=== PATIENT | female | born 1965 | race Caucasian/White ===

== ENCOUNTER → 2020-12-02 | Outpatient (CLI) | payer OTHER ==
[2020-12-02 12:50] LABS: ABSOLUTE NEUTROPHILS 7.3 thou/uL (1.4-8.2); BASOPHILS 0.3 % (0.0-2.0); EOSINOPHILS 1.6 % (0.0-3.0); HEMATOCRIT 39.2 % (37.0-47.0); HEMOGLOBIN 13.4 gm/dL (12.0-15.0); MCHC 34.1 g/dL (28.0-37.0); MONOCYTES 7.6 % (1.0-8.0); PLATELET COUNT 351 thou/uL (150-400); POLYS 51.5 % (36.0-66.0); RDW 12.8 % (10.5-14.5); WBC 14.2 thou/uL (4.0-11.0)
[2020-12-02 13:08] LABS: ALBUMIN 3.8 g/dL (3.4-5.0); ANION GAP 10 mmol/L (7-16); BUN 20 mg/dL (7-18); CALCIUM 9.1 mg/dL (8.5-10.1); CHLORIDE 99 mmol/L (98-107); CHOLESTEROL 225 mg/dL (<200); CO2 30 mmol/L (21-32); GLUCOSE 89 mg/dL (74-106); HDL CHOLESTEROL 49 mg/dL (>40); LDL CHOLESTEROL 151 mg/dL (<100); SGOT 15 U/L (15-37); SGPT 23 U/L (30-65); SODIUM 139 mmol/L (136-145); TC:HDL 4.6 Ratio (Not establshd); TOTAL BILIRUBIN 0.5 mg/dL (0.2-1.0); TOTAL PROTEIN 7.9 g/dL (6.4-8.2); TRIGLYCERIDE 125 mg/dL (<150); VLDL 25 mg/dL (<40)
[2020-12-02 13:54] LABS: POTASSIUM 2.8 mmol/L (3.5-5.1)
[2020-12-02 23:06] LABS: GLYCOHEMOGLOBIN (HGB A1C) 5.5 % (4.8-5.6)
== END ==
LOC: LAB 11:46
PROVIDERS: ATTEND Family Medicine
DX: E78.5 Hyperlipidemia, unspecified (principal); R73.9 Hyperglycemia, unspecified; E55.9 Vitamin D deficiency, unspecified

== ENCOUNTER → 2020-12-21 | Outpatient (CLI) | payer OTHER ==
[2020-12-21 11:13] LABS: ABSOLUTE NEUTROPHILS 5.6 thou/uL (1.4-8.2); BASOPHILS 0.8 % (0.0-2.0); EOSINOPHILS 2.3 % (0.0-3.0); HEMATOCRIT 39.8 % (37.0-47.0); HEMOGLOBIN 13.4 gm/dL (12.0-15.0); LYMPHOCYTES 39.4 % (24.0-44.0); MCH 30.7 pg (26.0-34.0); MCHC 33.7 g/dL (28.0-37.0); MCV 91.1 fL (80.0-100.0); PLATELET COUNT 318 thou/uL (150-400); POLYS 47.5 % (36.0-66.0); RBC 4.37 mil/uL (4.20-5.00); RDW 12.8 % (10.5-14.5); WBC 11.7 thou/uL (4.0-11.0)
[2020-12-21 11:21] LABS: CALCIUM 9.1 mg/dL (8.5-10.1); CREATININE 0.8 mg/dL (0.6-1.0)
== END ==
LOC: LAB 10:37
PROVIDERS: ATTEND Family Medicine
DX: E87.6 Hypokalemia (principal)

== ENCOUNTER → 2021-02-08 | Outpatient (CLI) | payer OTHER ==
[2021-02-08 11:36] LABS: ABSOLUTE NEUTROPHILS 4.2 thou/uL (1.4-8.2); BASOPHILS 0.4 % (0.0-2.0); EOSINOPHILS 2.2 % (0.0-3.0); HEMATOCRIT 37.7 % (37.0-47.0); HEMOGLOBIN 12.9 gm/dL (12.0-15.0); LYMPHOCYTES 47.7 % (24.0-44.0); MCH 31.6 pg (26.0-34.0); MCHC 34.2 g/dL (28.0-37.0); MCV 92.4 fL (80.0-100.0); MONOCYTES 8.2 % (1.0-8.0); PLATELET COUNT 320 thou/uL (150-400); POLYS 41.5 % (36.0-66.0); RBC 4.08 mil/uL (4.20-5.00); RDW 12.7 % (10.5-14.5); WBC 10.2 thou/uL (4.0-11.0)
[2021-02-08 11:55] LABS: CALCIUM 9.7 mg/dL (8.5-10.1); CREATININE 0.9 mg/dL (0.6-1.0)
[2021-02-08 13:21] LABS: POTASSIUM 2.8 mmol/L (3.5-5.1)
== END ==
LOC: LAB 10:54
PROVIDERS: ATTEND Family Medicine
DX: D72.829 Elevated white blood cell count, unspecified (principal); E87.6 Hypokalemia